=== PATIENT | male | born 1995 | race Caucasian/White ===

== ENCOUNTER 2020-09-11 10:43 | Emergency (ER) | payer BC, OTHER ==
[~2020-09-11] VITALS: Ht 144.8 cm; Wt 94.7 kg
--- NOTE | 2020-09-11 11:10 | NUR ---
PT BIB SISTER AFTER FINDING HIM DOWN IN THE [place]ITCH[place] THIS MORNING AT ABOUT 1030. "HE WAS LAYING ON THE GROUND AND HE WAS OUT OF IT AND HIS EYES WERE ROLLING INTO HIS HEAD. I THOUGHT HE HAD SOME FACIAL DROOP". MD BROUGHT TO ROOM FOR NEURO EXAM. PT RESTING IN [facility]. SIDE RAILS UP. SISTER IS BEDSIDE. CONNECTED TO ALL MONITORING EQUIPMENT
[2020-09-11 11:40] LABS: BASOPHILS % (AUTO) 0 % (0-1); EOSINOPHILS % (AUTO) 1 % (1-7); LYMPHOCYTES % (AUTO) 23 % (22-44); MEAN CORPUSCULAR HEMOGLOBIN 29.9 pg (27.5-34.5); MEAN CORPUSCULAR HGB CONC 33.4 g/dL (33.2-36.2); MEAN PLATELET VOLUME 7.6 fL (7.4-10.4); MONOCYTES % (AUTO) 8 % (2-9); NEUTROPHILS % (AUTO) 67 % (42-75); PLATELET COUNT 319 x10^3/uL (130-400); RED BLOOD COUNT 5.31 x10^6/uL (4.38-5.82); RED CELL DISTRIBUTION WIDTH 16.2 % (9.4-14.8)
[2020-09-11 11:42] LABS: MD NO
[2020-09-11 11:52] LABS: ANION GAP 3 mmol/L (5-15); CALCIUM 8.7 mg/dL (8.5-10.1); CHLORIDE 107 mmol/L (98-107); CREATININE 0.81 mg/dL (0.7-1.3)
[2020-09-11 11:53] VITALS: BP 110/52
== END 2020-09-11 12:32 | disposition home or self-care (01) ==
LOC: ED 12:25
DX: R55 Syncope and collapse (principal)
CPT/HCPCS: 36415; 80048; 85025; 99283